=== PATIENT | female | born 1980 | race Caucasian/White ===

== ENCOUNTER 2017-04-04 00:18 | Emergency (ER) | payer OTHER ==
[2017-04-04 00:28] VITALS: BMI 19.5
--- NOTE | 2017-04-04 01:12 | ED PDOC ---
HPI: Psych/Substance Abuse Time Seen by Provider: 04/04/17 00:27 Chief Complaint (Nursing): Trauma Chief Complaint (Provider): Alcohol Intoxication ED Caveat: Intoxicated History Per: EMS History/Exam Limitations: intoxication Suicide/Self Injury Attempted (Context): None Modifying Factor(s): Alcohol Additional Complaint(s): 36 year old female brought in by [facility] and PD presents to ED due to alcohol intoxication. As per EMS, patient was brought in for public intoxication. Upon arrival to ED, patient is aggressive an threatening ED staff. Patient refuses to cooperate with questioning or examination. EMS states that patient hit her head. PCP: REFUGIO Past Medical History Reviewed: Unable To Obtain - Family History Family History: States: Unknown Family Hx - Allergies Allergies/Adverse Reactions: Allergies Allergy/AdvReac Type Severity Reaction Status Date / Time Unobtainable Allergy Verified 04/04/17 00:28 Review of Systems Review Of Systems: ROS cannot be obtained secondary to pt's inabilty to answer questions. Physical Exam - Reviewed Nursing Documentation Reviewed: Yes Vital Signs Reviewed: Yes - Physical Exam Appears: Positive for: Non-toxic Head Exam: Negative for: ATRAUMATIC (1cm superficial laceration to right occipital-parietal scalp) Skin: Positive for: Normal Color, Warm Eye Exam: Positive for: Normal appearance Neck: Positive for: Normal, Painless ROM Respiratory: Negative for: Respiratory Distress Extremity: Positive for: Normal ROM. Negative for: Deformity Neurologic/Psych: Positive for: Alert, Gait (unsteady), Other (slurred speech) - Laboratory Results Result Diagrams: 04/04/17 01:15 04/04/17 01:15 - Critical Care Total Time (In Min): 30 Medical Decision Making Medical Decision Makin Initial impression: public intoxication and questionable history of head injury Initial plan: * CT HEAD * EtOH serum * UDrug sreen * UPreg * UDip * Ativan 2mg IM * Haldol 5mg IM * 1:1 OBS * Accucheck * Restraints: violent * Re-eval Restraints and chemical sedation due to patient's extremely aggressive nature. 30 minutes of [address]. [address] HEAD FINDINGS Brain: No intracranial hemorrhage. No mass. No edema. Ventricles: No hydrocephalus. Bones/joints: No acute fracture. Soft tissues: RIGHT occipital parietal soft tissue swelling. Sinuses: No acute sinusitis. Mastoid air cells: No mastoid effusion. Orbits: Unremarkable as visualized. IMPRESSION: 1. No intracranial hemorrhage. 0700 Patient will be signed out to Dr. Valdovinos pending sobriety. Scribe Attestation: Documented by Flory Fisher acting as a scribe for Samuel Camilo MD. Scribe Attestation: All medical record entries made by the Scribe were at my direction and personally dictated by me. I have reviewed the chart and agree that the record accurately reflects my personal performance of the history, physical exam, medical decision making, and the department course for this patient. I have also personally directed, reviewed, and agree with the discharge instructions and disposition. Disposition - Clinical Impression Clinical Impression: Alcohol intoxication, Scalp laceration - Patient ED Disposition Is Patient to be Admitted: Transfer of Care - Disposition Disposition: Transfer of Care Disposition Time: 07:00 Condition: STABLE Forms: [facility] (Chinese) Patient Signed Over To: Acosta Valdovinos Y Handoff Comments: pending sobriety
[2017-04-04 01:31] LABS: BASO % 0.5 % (0.0-2.0); EOS % 0.5 % (0.0-4.0); HEMATOCRIT 37.4 % (34.0-47.0); LYMPH # 1.9 K/uL (1.0-4.3); LYMPH % 27.7 % (20.0-40.0); MEAN CELL VOLUME 93.4 fl (81.0-99.0); MEAN CORPUSCULAR HEMOGLOBIN 30.4 pg (27.0-31.0); MEAN CORPUSCULAR HGB CONC 32.5 g/dL (33.0-37.0); MEAN PLATELET VOLUME 9.4 fl (7.2-11.7); MONO # 0.4 K/uL (0.0-0.8); MONO % 5.7 % (0.0-10.0); NEUT # 4.5 K/uL (1.8-7.0); NEUT % 65.6 % (50.0-75.0); NRBC % 0.1 % (0.0-0.0); RED CELL DISTRIBUTION WIDTH 14.1 % (11.5-14.5); WHITE BLOOD COUNT 6.9 K/uL (4.8-10.8)
[2017-04-04 01:43] LABS: ALB/GLOB RATIO 1.3 (1.0-2.1); ALCOHOL SERUM 273 mg/dl (0-10); ALKALINE PHOSPHATASE 57 U/L (38-126); ALT/SGPT 27 U/L (9-52); AST/SGOT 21 U/L (14-36); BILIRUBIN,TOTAL 0.3 mg/dl (0.2-1.3); BLOOD UREA NITROGEN 10 mg/dl (7-17); CALCIUM 9.3 mg/dL (8.4-10.2); CARBON DIOXIDE 18 mmol/L (22-30); CHLORIDE 110 mmol/L (98-107); GFR AFRICAN-AMERICAN > 60; GLUCOSE,RANDOM 103 mg/dL (65-105); SODIUM 144 mmol/l (132-148); TOTAL PROTEIN 7.5 G/DL (6.3-8.2)
--- NOTE | 2017-04-04 02:16 | CT ---
EXAM: CT Head Without Intravenous Contrast CLINICAL HISTORY: 36 years old, female; Injury or trauma; Fall; Additional info: Head injury TECHNIQUE: Axial computed tomography images of the head/brain without intravenous contrast. All CT scans at this facility use one or more dose reduction techniques, viz.: automated exposure control; ma/kV adjustment per patient size (including targeted exams where dose is matched to indication; i.e. head); or iterative reconstruction technique. Coronal and sagittal reformatted images were created and reviewed. COMPARISON: No relevant prior studies available. FINDINGS: Brain: No intracranial hemorrhage. No mass. No edema. Ventricles: No hydrocephalus. Bones/joints: No acute fracture. Soft tissues: RIGHT occipital parietal soft tissue swelling. Sinuses: No acute sinusitis. Mastoid air cells: No mastoid effusion. Orbits: Unremarkable as visualized. IMPRESSION: 1. No intracranial hemorrhage.
[2017-04-04 07:39] VITALS: O2SAT 100
--- NOTE | 2017-04-04 07:50 | ED PDOC ---
- Laboratory Results Result Diagrams: 04/04/17 01:15 04/04/17 01:15 - ECG O2 Sat by Pulse Oximetry: 100 Medical Decision Making Medical Decision Making: Time: 07:00 Patient signed out to me by Dr. Camilo pending sobriety. Time: 11:49 Patient is sober and has stable gait. Patient is ready for discharged. Upon provider evaluation patient is medically stable, and requires no further treatment in the ED at this time. Patient will be discharged. Counseling was provided and all questions were answered regarding diagnosis. There is agreement to discharge plan. Return if symptoms persist or worsen. Scribe Attestation: Documented by Nicolás Price, acting as a scribe for Acosta Valdovinos MD Provider Scribe Attestation: All medical record entries made by the Scribe were at my direction and personally dictated by me. I have reviewed the chart and agree that the record accurately reflects my personal performance of the history, physical exam, medical decision making, and the department course for this patient. I have also personally directed, reviewed, and agree with the discharge instructions and disposition. Disposition - Clinical Impression Clinical Impression: Alcohol intoxication, Scalp laceration - POA Present On Arrival: None - Disposition Referrals: [facility] [Outside] [facility] [Outside] Disposition: Routine/Home Disposition Time: 11:25 Condition: IMPROVED Additional Instructions: follow up with your primary doctor in 1-2 days cut down on your alcohol intake return to the ED with any worsening or concerning symptoms Instructions: Alcohol Intoxication (ED) Forms: [employer] (Mauritanian)
[2017-04-04 12:10] VITALS: BP 104/61; PULSE 90; RESP 19; TEMP 98
== END 2017-04-04 12:16 | disposition home or self-care (01) ==
LOC: H.ER 00:18
DX: F10.129 Alcohol abuse with intoxication, unspecified (principal); S01.01XA Laceration without foreign body of scalp, initial encounter; W19.XXXA Unspecified fall, initial encounter; Y92.89 Other specified places as the place of occurrence of the external cause
CPT/HCPCS: 70450; 80053; 80320; 82948; 85025; 90471; 90715; 96372; 99285; J1630; J2060